=== PATIENT | female | born 1990 | race Caucasian/White ===

== ENCOUNTER 2017-09-06 20:00 | Emergency (ER) | payer OTHER ==
[2017-09-06 20:38] VITALS: BP 115/88
[2017-09-06 21:12] LABS: AMORPHOUS SEDIMENT,URINE 1+ /HPF
[2017-09-06 21:31] LABS: COLOR,URINE STRAW
[2017-09-06 21:32] LABS: APPEARANCE,URINE SLIGHTLY-CLOUDY; BILIRUBIN,URINE NEGATIVE (NEGATIVE); GLUCOSE, URINE NEGATIVE (NEGATIVE); KETONES,URINE NEGATIVE (NEGATIVE); PROTEIN,URINE 30 mg/dL (NEGATIVE); URINE SPECIFIC GRAVITY 1.005
[2017-09-06 21:33] LABS: LEUKOCYTE ESTERASE,URINE NEGATIVE (NEGATIVE); NITRITE,URINE NEGATIVE (NEGATIVE); UROBILINOGEN,URINE NEGATIVE mg/dL (<2.0)
--- NOTE | 2017-09-06 21:55 | ER Document Report ---
ED GI/ - General Chief Complaint: Flank Pain Stated Complaint: RIGHT SIDE PAIN Time Seen by Provider: 09/06/17 21:52 Mode of Arrival: Ambulatory Information source: Patient Notes: 27 yo smoker, occ. etoh, female had what she thought was period cramps , suprapubic at 12:30pm. 4:30 pm had right low back pain that lasted 30 minutes, and stopped. Restarted at 6:30 with vomiting 4.5/5, can't get comfortable. No hx kidney stones. No dysuria, freq. urgency, no vaginal discahrge. LMP july 24, 5-6 week cycle. Hx jimmie. G0. TRAVEL OUTSIDE OF THE [place] IN LAST 30 DAYS: No - Related Data Allergies/Adverse Reactions: No Known Allergies Allergy (Verified 09/06/17 21:59) Past Medical History - General Information source: Patient - Social History Smoking Status: Current Some Day Smoker Frequency of alcohol use: Occasional Drug Abuse: None Occupation: teacher Lives with: Family Family History: Reviewed & Not Pertinent - Medical History Medical History: Negative Past Surgical History: Reports: Hx Cholecystectomy Review of Systems - Review of Systems Constitutional: No symptoms reported EENT: No symptoms reported Cardiovascular: No symptoms reported Respiratory: No symptoms reported Gastrointestinal: See HPI Genitourinary: See HPI Female Genitourinary: No symptoms reported Musculoskeletal: See HPI Skin: No symptoms reported Hematologic/Lymphatic: No symptoms reported Neurological/Psychological: No symptoms reported Physical Exam - Vital signs Vitals: Temp Pulse Resp BP Pulse Ox 98.1 F 90 14 115/88 H 99 09/06/17 20:36 09/06/17 20:36 09/06/17 20:36 09/06/17 20:36 09/06/17 20:36 Interpretation: Normal - General General appearance: Appears well, Alert In distress: None - HEENT Head: Normocephalic, Atraumatic Eyes: Normal Pupils: PERRL Mucous membranes: Normal Neck: Supple. No: Lymphadenopathy - Respiratory Respiratory status: No respiratory distress Chest status: Nontender Breath sounds: Normal Chest palpation: Normal - Cardiovascular Rhythm: Regular Heart sounds: Normal auscultation Murmur: No - Abdominal Inspection: Normal Distension: No distension Bowel sounds: Normal Tenderness: Nontender Organomegaly: No organomegaly - Back Back: Normal, Nontender. No: CVA tenderness - Extremities General upper extremity: Normal inspection, Nontender, Normal color, Normal ROM , Normal temperature General lower extremity: Normal inspection, Nontender, Normal color, Normal ROM , Normal temperature, Normal weight bearing. No: Stacie's sign - Neurological Neuro grossly intact: Yes Cognition: Normal Orientation: AAOx4 [place] Coma Scale Eye Opening: Spontaneous [place] Coma Scale Verbal: Oriented [place] Coma Scale Motor: Obeys Commands [place] Coma Scale Total: 15 Speech: Normal Motor strength normal: LUE, RUE, LLE, RLE Sensory: Normal - Psychological Associated symptoms: Normal affect, Normal mood - Skin Skin Temperature: Warm Skin Moisture: Dry Skin Color: Normal Skin irregularity: negative: Rash Course - Re-evaluation Re-evalutation: 09/06/17 23:44 3 mm stone at UPJ. with hydro. 2+ bacteria, culture pending, no wbc in urine. Rocephin 1 gram ordered. Keflex pending urine culture. consult NEHEMIAS bennett to go home, f/u urology 09/07/17 01:59 - Vital Signs Vital signs: Temp Pulse Resp BP Pulse Ox 98.1 F 90 14 115/88 H 99 09/06/17 20:36 09/06/17 20:36 09/06/17 20:36 09/06/17 20:36 09/06/17 20:36 - Laboratory Laboratory results interpreted by me: 09/06/17 20:47 Urine Protein 30 H Urine Blood MODERATE H Discharge - Discharge Clinical Impression: 3mm UPJ stone, bacteruria Hydronephrosis Qualifiers: Hydronephrosis type: unspecified Qualified Code(s): N13.30 - Unspecified hydronephrosis Condition: Good Disposition: HOME, SELF-CARE Instructions: Cephalexin ([facility]), Flomax ([facility]), Kidney Stone ([facility]), Rocephin ([facility] ) Additional Instructions: plenty of fluids see the urologist flomax 0.4 mg daily until no pain the pain will stop when the stone is in your bladder urine culture pending cephelexin four times per day starting tomorrow to er if worsening pain, fever. vomiting. Prescriptions: Cephalexin Monohydrate [Keflex 500 mg Capsule] 500 mg PO QID #28 capsule Ondansetron HCl [Zofran 4 mg Tablet] 1 - 2 tab PO Q4H PRN #30 tablet PRN Reason: Tamsulosin HCl [Flomax 0.4 mg Cap.sr] 0.4 mg PO DAILY #6 cap.sr.24h Forms: Return to Work Referrals: COURT DALEY MD [RAMSES FAYE] - Follow up tomorrow (call tomorrow for appt this week)
[2017-09-06] MEDS ORDERED: ONDANSETRON 4 MG TAB.RAPDIS PO ONE (21:59)
[2017-09-06] MEDS ORDERED: KETOROLAC TROMETHAMINE 60 MG/2 ML SDV IM ONE (21:59)
--- NOTE | 2017-09-06 22:27 | RADIOLOGY REPORT (SQ) ---
EXAM DESCRIPTION: CT LTD RENAL STONE PROTOCOL ON COMPLETED DATE/TIME: 09/06/2017 10:15 pm REASON FOR STUDY: right flank pain, hematuria COMPARISON: None. TECHNIQUE: CT scan of the abdomen and pelvis performed without intravenous or oral contrast. Images reviewed with lung, soft tissue, and bone windows. Reconstructed coronal and sagittal MPR images revi ewed. All images stored on PACS. All CT scanners at this facility use dose modulation, iterative reconstruction, and/or weight based d osing when appropriate to reduce radiation dose to as low as reasonably achievable (ALARA). [facility]: Dose Right [facility]: CareDose [facility]: Dose Right [facility]: Teradose 4D [facility]: [employer] RADIATION DOSE: CT Rad equipment meets quality standard of care and radiation dose reduction techniq ues were employed. CTDIvol: 5.2 mGy. DLP: 266 mGy-cm.mGy. LIMITATIONS: None. FINDINGS: LOWER CHEST: No significant findings. No nodules or infiltrates. NON-CONTRASTED LIVER, SPLEEN, ADRENALS: Evaluation limited by lack of IV contrast. No identified sign ificant masses. PANCREAS: No masses. No peripancreatic inflammatory changes. GALLBLADDER: Surgically absent. RIGHT KIDNEY AND URETER: No suspicious masses. Assessment limited by lack of IV contrast. 3 mm calc ulus at the ureteral pelvic junction. Mild to moderate hydronephrosis. LEFT KIDNEY AND URETER: No suspicious masses. Assessment limited by lack of IV contrast. Calcificat ion in the upper pole. No hydronephrosis or hydroureter. AORTA AND RETROPERITONEUM: No aneurysm. No retroperitoneal masses or adenopathy. BOWEL AND PERITONEAL CAVITY: No obvious masses or inflammatory changes. No free fluid. APPENDIX: Normal. PELVIS, BLADDER, AND ABDOMINAL WALL:No abnormal masses. No free fluid. Bladder normal. BONES: No significant findings. OTHER: No other significant finding. IMPRESSION: 3 MM CALCULUS AT THE RIGHT URETERAL PELVIC JUNCTION WITH MILD TO MODERATE HYDRONEPHROSIS . NO OTHER SIGNIFICANT OR ACUTE PROCESS IN THE ABDOMEN OR PELVIS. COMMENT: Quality ID # [id number]: Final reports with documentation of one or more dose reduction techniques (e.g., Automated exposure control, adjustment of the mA and/or kV according to patient size, use of iterative reconstruction technique) TECHNICAL DOCUMENTATION: JOB ID: [id number] [employer]- All Rights Reserved Reading location - IP/workstation name: [email or web address]
[2017-09-06] MEDS ORDERED: CEFTRIAXONE INJ 1000 MG VIAL IV ONE (23:39)
[2017-09-06] MEDS ORDERED: TAMSULOSIN HCL 0.4 MG CAP.SR.24H PO ONE (23:48)
[2017-09-06] MEDS ORDERED: CEFTRIAXONE INJ 1000 MG VIAL IM ONE (23:50)
[2017-09-06] MEDS ORDERED: LIDOCAINE 1% INJ-PF (10 MG/ML) 30 ML SDV INFIL ONE (23:50)
== END 2017-09-07 00:17 | disposition home or self-care (01) ==
LOC: ER 20:00
DX: N13.2 Hydronephrosis with renal and ureteral calculous obstruction (principal); F17.200 Nicotine dependence, unspecified, uncomplicated; Z90.49 Acquired absence of other specified parts of digestive tract
CPT/HCPCS: 99284; 96372; 87086; 81025; 87088; 81001; 76380; J1885; S0119; J3490; J0696

== ENCOUNTER 2017-09-15 10:43 | Emergency (ER) | payer OTHER ==
[2017-09-15] MEDS ORDERED: ONDANSETRON 4 MG TAB.RAPDIS PO ONE (12:00)
[2017-09-15] MEDS ORDERED: HYDROCODONE/ACETAMINOPHEN 5-325 MG TABLET PO ONE (12:00)
[2017-09-15] MEDS ORDERED: NAPROXEN 250 MG TABLET PO ONE (12:00)
--- NOTE | 2017-09-15 12:04 | ER Document Report ---
ED GI/ - General Chief Complaint: Possible Kidney Stone Stated Complaint: ABDOMINAL PAIN Time Seen by Provider: 09/15/17 11:49 Mode of Arrival: Ambulatory Information source: Patient, [facility] Records Notes: 27-year-old female patient was seen here on 09/06/2017 with a 3 mm right ureteropelvic junction stone with mild to moderate obstruction. She did see a urologist at [facility] on 09/10/2017. She has been having pain off and on lasting maybe 10-15 minutes at a time, has not required pain medication. She woke up at 5 AM this morning with severe right flank pain now wrapping around to the front. She has a pressure sensation feeling like she needs to urinate but does not. There is been no vomiting. No fever. She has been on Keflex for the pyuria noted on 09/06/2017. Urinalysis on 09/06/2017 had a few WBCs, culture grew vaginal [place]. TRAVEL OUTSIDE OF THE [place] IN LAST 30 DAYS: No - Related Data Allergies/Adverse Reactions: No Known Allergies Allergy (Verified 09/15/17 10:43) Past Medical History - General Information source: Patient, [facility] Records - Social History Smoking Status: Current Some Day Smoker Cigarette use (# per day): Yes - Occasional cigarette Chew tobacco use (# tins/day): No Smoking Education Provided: No Frequency of alcohol use: Occasional Drug Abuse: None Occupation: Schoolteacher Lives with: Alone Family History: Reviewed & Not Pertinent Patient has suicidal ideation: No Patient has homicidal ideation: No Renal/ Medical History: Reports: Hx Kidney Stones Past Surgical History: Reports: Hx Cholecystectomy Review of Systems - Review of Systems Constitutional: No symptoms reported EENT: No symptoms reported Cardiovascular: No symptoms reported Respiratory: No symptoms reported Gastrointestinal: No symptoms reported Genitourinary: See HPI Female Genitourinary: No symptoms reported Musculoskeletal: No symptoms reported Skin: No symptoms reported Hematologic/Lymphatic: No symptoms reported Neurological/Psychological: No symptoms reported Physical Exam - Vital signs Vitals: Temp Pulse Resp BP Pulse Ox 98.0 F 103 H 18 123/85 98 09/15/17 10:47 09/15/17 10:47 09/15/17 10:47 09/15/17 10:47 09/15/17 10:47 Interpretation: Normal - General General appearance: Alert In distress: Mild - Patient is a little uncomfortable at this time, states it is better than it was when she first got here. - HEENT Head: Normocephalic, Atraumatic Eyes: Normal Pupils: PERRL - Respiratory Respiratory status: No respiratory distress - Cardiovascular Rhythm: Regular - Abdominal Inspection: Normal Tenderness: Tender - Some right abdominal tenderness - Back Back: CVA tenderness - Right CVA percussion tenderness - Extremities General upper extremity: Normal inspection General lower extremity: Normal inspection - Neurological Neuro grossly intact: Yes - Psychological Associated symptoms: Normal affect, Normal mood - Skin Skin Temperature: Warm Skin Moisture: Dry Skin Color: Normal Course - Re-evaluation Re-evalutation: 09/15/17 13:20 Patient does feel better at this time after medications. - Vital Signs Vital signs: Temp Pulse Resp BP Pulse Ox 98.2 F 77 16 109/76 100 09/15/17 13:10 09/15/17 13:10 09/15/17 13:10 09/15/17 13:10 09/15/17 13:10 - Laboratory Laboratory results interpreted by me: 09/15/17 12:10 Urine Blood MODERATE H Discharge - Discharge Clinical Impression: Renal colic on right side Condition: Stable Disposition: HOME, SELF-CARE Additional Instructions: Drink plenty of fluids. Take 2 Aleve every 12 hours. Take the pain medication as needed. Follow-up with your urologist this week for recheck. RETURN TO THE EMERGENCY ROOM IF ANY NEW OR WORSENING SYMPTOMS. Prescriptions: Oxycodone HCl/Acetaminophen [Percocet 5-325 mg Tablet] 0.5 - 1 tab PO ASDIR PRN #15 tablet PRN Reason: Forms: Return to Work
[2017-09-15 12:55] LABS: APPEARANCE,URINE CLEAR; BILIRUBIN,URINE NEGATIVE (NEGATIVE); COLOR,URINE STRAW; GLUCOSE, URINE NEGATIVE (NEGATIVE); KETONES,URINE NEGATIVE (NEGATIVE); LEUKOCYTE ESTERASE,URINE NEGATIVE (NEGATIVE); NITRITE,URINE NEGATIVE (NEGATIVE); PROTEIN,URINE NEGATIVE (NEGATIVE); URINE SPECIFIC GRAVITY 1.004; UROBILINOGEN,URINE NEGATIVE mg/dL (<2.0)
[2017-09-15 13:11] VITALS: BP 109/76
== END 2017-09-15 13:25 | disposition home or self-care (01) ==
LOC: ER 10:43
DX: N23 Unspecified renal colic (principal); R10.9 Unspecified abdominal pain; F17.210 Nicotine dependence, cigarettes, uncomplicated; Z87.442 Personal history of urinary calculi; Z90.49 Acquired absence of other specified parts of digestive tract
CPT/HCPCS: 99284; 87086; 81001; S0119

== ENCOUNTER → 2017-09-24 | Outpatient (CLI) | payer OTHER ==
--- NOTE | 2017-09-24 10:45 | RADIOLOGY REPORT (SQ) ---
EXAM DESCRIPTION: KUB COMPLETED DATE/TIME: 09/24/2017 10:35 am REASON FOR STUDY: CALCULUS OF URETER N20.1 CALCULUS OF URETER COMPARISON: None. NUMBER OF VIEWS: One view. TECHNIQUE: Supine radiographic image of the abdomen acquired. LIMITATIONS: None. FINDINGS: BOWEL GAS PATTERN: Normal bowel gas pattern. No dilated loops. CALCIFICATIONS: Small 1 to 2 mm calcification noted in the right aspect of the pelvis is nonspecific but most likely phlebolith. Distal right ureteral stone cannot entirely be excluded. SOFT TISSUES: No gross mass or suggestion of organomegaly. HARDWARE: Surgical clips are present the right upper quadrant consistent with prior cholecystectomy. BONES: No acute fracture. No worrisome bone lesions. OTHER: No other significant finding. IMPRESSION: Small calcific densities node in the right aspect of the pelvis. This most likely repre sents phlebolith but a distal right ureteral stone cannot be excluded. Gas pattern is nonspecific. TECHNICAL DOCUMENTATION: JOB ID: [id number] [employer]- All Rights Reserved Reading location - IP/workstation name: [email or web address]
== END ==
LOC: OD 10:13
PROVIDERS: ATTEND Urology
DX: N20.1 Calculus of ureter (principal)
CPT/HCPCS: 74018